=== PATIENT | male | born 1990 | race Caucasian/White ===

== ENCOUNTER 2017-07-12 15:52 | Emergency (ER) | payer BC, OTHER ==
[2017-07-12 16:12] VITALS: BP 125/84; PULSE 72; TEMP 98.7; BMI 28.5
[2017-07-12] MEDS ORDERED: IBUPROFEN 400 MG TABLET (FP) PO ONE (16:36)
--- NOTE | 2017-07-12 16:38 | PDOC ---
History of Present Illness - General Chief Complaint: Injury Stated Complaint: LEFT ANKLE PAIN Time Seen by Provider: 07/12/17 16:22 Past History - Past Medical History Allergies/Adverse Reactions: Allergies Allergy/AdvReac Type Severity Reaction Status Date / Time No Known Allergies Allergy Verified 07/12/17 15:58 Home Medications: Ambulatory Orders NK [No Known Home Medication] 07/12/17 Anemia: No COPD: No - Surgical History Abdominal Surgery: No - Immunization History Td Vaccination: Yes Immunization Up to Date: No - Suicide/Smoking/Psychosocial Hx Smoking Status: No Smoking History: Never smoked Have you smoked in the past 12 months: No Number of Cigarettes Smoked Daily: 0 Information on smoking cessation initiated: No Hx Alcohol Use: No Drug/Substance Use Hx: No Substance Use Type: None *Physical Exam - Vital Signs Last Vital Signs Temp Pulse Resp BP Pulse Ox 98.7 F 72 20 125/84 99 07/12/17 15:58 07/12/17 15:58 07/12/17 15:58 07/12/17 15:58 07/12/17 15:58 Medical Decision Making - Medical Decision Making 07/12/17 17:18 30y M no pmhx presents with L ankle pain. The patint states he was playing basketball when he rolled his L ankle (eversion), dnies any numbness/tingling/ weakness. the patients exam: no focal bony tenderness to lateral/medial mallelos mild pain just distal to his latearal mallelus no 5th metatarsal tenderness no knee tenderness prrox fibular/tibia tenderness suspect fracture vs sprain motrin/xray 07/12/17 18:19 no fracture noted on hs ankle/foto xray will dc with tone wrap nsaid/supportive care at home pmd fu rturn precautios were discussed I discussed the physical exam findings, ancillary test results and final diagnoses with the patient. I answered all of the patient's questions. The patient was satisfied with the care received and felt comfortable with the discharge plan and treatment plan. The patient will call their primary care physician within 24 hours to arrange follow-up and will return to the Emergency Department with any new, persistent or worsening symptoms. *DC/Admit/Observation/Transfer Diagnosis at time of Disposition: Left ankle sprain Qualifiers: Encounter type: initial encounter Involved ligament of ankle: unspecified ligament Qualified Code(s): S93.402A - Sprain of unspecified ligament of left ankle, initial encounter - Discharge Dispostion Disposition: HOME Condition at time of disposition: Improved Admit: No - Referrals Referrals: Ye Marino MD [Staff Physician] - - Patient Instructions Printed Discharge Instructions: DI for Ankle Sprain Additional Instructions: Return to the emergency department immediately with ANY new, persistent or worsening symptoms. Keep your extremity elevated. Apply ice to reduce swelling. Take ibuprofen for pain. Refrained from physical activity until reassessed. You MUST call and follow up with your doctor tomorrow for further evaluation of your symptoms. Results were discussed with you. Please make sure your doctor reviews the results of your emergency evaluation. If you had any xrays during your visit, it was read preliminarily by myself, a Radiologist will review it and if there are any additional findings we will call you. Print Language: ITALIAN - Post Discharge Activity
[2017-07-12] MEDS ORDERED: IBUPROFEN 600 MG TABLET (FP) PO ONE (16:58)
== END 2017-07-12 18:23 | disposition home or self-care (01) ==
LOC: FER 15:52
DX: S93.402A Sprain of unspecified ligament of left ankle, initial encounter (principal); X58.XXXA Exposure to other specified factors, initial encounter; Y93.89 Activity, other specified; Y92.9 Unspecified place or not applicable
CPT/HCPCS: 73610-TC-LT-FY; 73630-TC-LT; 99282-25

== ENCOUNTER 2018-07-24 09:12 | Emergency (ER) | payer BC ==
[2018-07-24 09:27] VITALS: BP 144/100; PULSE 75; TEMP 98.5; BMI 29.9
[2018-07-24] MEDS ORDERED: SODIUM CHLORIDE 1,000 ML IV STA (09:30)
[2018-07-24] MEDS ORDERED: ONDANSETRON 4 MG/2 ML VIAL IVPUSH ONE (09:31)
--- NOTE | 2018-07-24 09:33 | PDOC ---
History of Present Illness - General Chief Complaint: Pain Stated Complaint: RIGHT RIB CAGE PAIN Time Seen by Provider: 07/24/18 09:15 History Source: Patient (Patient walked in complaning of right side (under the rib cage ) pain with some radiation to the back intermitently, worse this early a.m. Patient works nightshifts in a hotel, pain triggered by fatty food. Patient lost 170 lb over few months few years ago.) Exam Limitations: No Limitations - History of Present Illness Timing/Duration: 4-6 hours, other (Patient had similar pains througout yers, normal CT allegedly.) Severity: moderate Associated Symptoms: reports: nausea/vomiting Past History - Travel Traveled outside of the country in the last 30 days: No Close contact w/someone who was outside of country & ill: No - Past Medical History Allergies/Adverse Reactions: Allergies Allergy/AdvReac Type Severity Reaction Status Date / Time No Known Allergies Allergy Verified 07/24/18 09:14 Home Medications: Ambulatory Orders NK [No Known Home Medication] 07/12/17 Anemia: No COPD: No Other medical history: Morbid obesity lost 170 lb few years ago - Surgical History Abdominal Surgery: No - Immunization History Td Vaccination: Yes Immunization Up to Date: No - Suicide/Smoking/Psychosocial Hx Smoking Status: No Smoking History: Never smoked Have you smoked in the past 12 months: No Number of Cigarettes Smoked Daily: 0 Hx Alcohol Use: No Drug/Substance Use Hx: No Substance Use Type: None Review of Systems - Review of Systems Able to Perform ROS?: Yes Is the patient limited Salvadorean proficient: Yes Constitutional: Yes: Symptoms Reported, Malaise HEENTM: No: Symptoms Reported, See HPI, Eye Pain, Blurred Vision, Tearing, Recent change in vision, Double Vision, Cataracts, Ear Pain, Ocular Prothesis, Ear Discharge, Nose Pain, Nose Congestion, Tinnitus, Nose Bleeding, Hearing Loss , Throat Pain, Throat Swelling, Mouth Pain, Dental Problems, Difficulty Swallowing, Mouth Swelling, Other Respiratory: No: Symptoms reported, See HPI, Cough, Orthopnea, Shortness of Breath, SOB with Exertion, SOB at Rest, Stridor, Wheezing, Productive cough, Hemoptysis, Other Cardiac (ROS): No: Symptoms Reported, See HPI, Chest Pain, Edema, Irregular Heart Rate, Lightheadedness, Palpitations, Syncope, Chest Tightness, Other ABD/GI: Yes: Symptoms Reported, See HPI, Nausea : No: Symptoms Reported, See HPI, Burning, Dysuria, Discharge, Frequency, Flank Pain, Hematuria, Incontinence, Pain, Urgency, Testicular Mass, Testicular Swelling, Lesions, Testicular Pain, Other Musculoskeletal: No: Symptoms Reported, See HPI, Back Pain, Gout, Joint Pain, Joint Swelling, Muscle Pain, Muscle Weakness, Neck Pain, Joint Stiffness, Other Integumentary: No: Symptoms Reported, See HPI, Bruising, Change in Color, Change in Hair/Nails, Dryness, Erythema, Flushing, Lesions, Lumps, Pallor, Pruritus, Rash, Sweating, Other Neurological: No: Symptoms reported, See HPI, Headache, Numbness, Paresthesia, Pre-Existing Deficit, Seizure, Tingling, Tremors, Weakness, Unsteady Gait, Ataxia, Dizziness, Other All Other Systems: Reviewed and Negative *Physical Exam - Physical Exam General Appearance: Yes: Nourished, Appropriately Dressed, Mild Distress, Moderate Distress HEENT: positive: NYLA Neck: positive: Trachea midline, Supple Respiratory/Chest: positive: Lungs Clear Cardiovascular: positive: Regular Rate, S1, S2 Gastrointestinal/Abdominal: positive: Normal Bowel Sounds, Tender (RUQ pain at deep palpation without rebound) Lymphatic: negative: Adenopathy Musculoskeletal: positive: Normal Inspection. negative: CVA Tenderness Extremity: positive: Normal Capillary Refill, Normal Inspection Integumentary: positive: Normal Color, Dry, Warm Neurologic: positive: Fully Oriented, Alert, Normal Mood/Affect ED Treatment Course - LABORATORY CBC & Chemistry Diagram: 07/24/18 09:50 07/24/18 09:50 Medical Decision Making - Medical Decision Making Patient seen immediately from arrival, Wyatt shipley Impression : RUQ pain , Gallbladder pathology to be worked out 07/24/18 09:40 07/24/18 10:15 Patient receiving iv fluids and Zofran with improvement of symptom Required more pain control iv Toradol given Awaiting for lab results and US of abdomen 07/24/18 10:[address] Pierre at shift change at 11 am *DC/Admit/Observation/Transfer Diagnosis at time of Disposition: Abdominal pain Qualifiers: Abdominal location: right upper quadrant Qualified Code(s): R10.11 - Right upper quadrant pain Cholelithiasis Qualifiers: Cholelithiasis location: gallbladder Cholecystitis presence: without cholecystitis Biliary obstruction: without biliary obstruction Qualified Code(s) : K80.20 - Calculus of gallbladder without cholecystitis without obstruction - Discharge Dispostion Disposition: HOME Condition at time of disposition: Stable Decision to Admit order: No - Referrals Referrals: Gerda Mobley MD [Staff Physician] - Reyna Harris MD [Staff Physician] - - Patient Instructions Printed Discharge Instructions: DI for Abdominal Pain-Adult Additional Instructions: Call the doctors for appontments today Return anytime if pain continues - Post Discharge Activity Forms/Work/School Notes: Back to Work
[2018-07-24] MEDS ORDERED: ONDANSETRON 4 MG/2 ML VIAL ONE (09:39)
[2018-07-24] MEDS ORDERED: KETOROLAC TROMETHAMINE 30 MG/1 ML VIAL ONE ×2 (10:13→11:39)
[2018-07-24] MEDS ORDERED: KETOROLAC TROMETHAMINE 30 MG/1 ML VIAL IVPUSH ONE ×2 (10:14→11:36)
[2018-07-24 10:18] LABS: BASO % 0.3 % (0-2.0); EOS % 2.4 % (0-4.5); HEMATOCRIT 47.5 % (35.4-49); HEMOGLOBIN 15.6 GM/dl (11.7-16.9); LYMPH % 28.8 % (8-40); MCH 28.7 pg (25.7-33.7); MCHC 32.8 g/dl (32.0-35.9); MEAN CELL VOLUME 87.5 fl (80-96); MEAN PLT VOLUME 10.3 fl (7.5-11.1); MONO % 5.7 % (3.8-10.2); NEUT % 62.8 % (42.8-82.8); PLATELET COUNT 221 K/MM3 (134-434); RBC 5.43 M/mm3 (4.00-5.60); RDW 12.3 % (11.9-15.9); WHITE BLOOD COUNT 6.4 K/mm3 (4.0-10.8)
[2018-07-24 10:29] LABS: ANION GAP 7 MMOL/L (8-16); BLOOD UREA NITROGEN 20 mg/dl (7-18); CALCIUM 9.4 mg/dl (8.5-10); CHLORIDE 102 mmol/L (98-107); CO2 28 mmol/L (21-32); GLUCOSE,RANDOM 98 mg/dl (74-106); POTASSIUM 4.1 mmol/L (3.5-5.1); SODIUM 137 mmol/L (136-145); TOT PROT 7.8 g/dl (6.4-8.2)
[2018-07-24 10:30] LABS: ALBUMIN 4.4 g/dl (3.4-5.0); ALK PHOS 73 U/L (45-117); BILIRUBIN,TOTAL 0.8 mg/dl (0.2-1); SGOT/AST 24 U/L (15-37); SGPT/ALT 16 U/L (13-61)
[2018-07-24 10:45] LABS: AMYLASE 99 U/L (25-115)
[2018-07-24 11:07] LABS: URINE APPEARANCE CLEAR; URINE BILIRUBIN NEGATIVE (NEGATIVE); URINE COLOR YELLOW; URINE GLUCOSE (UA) NEGATIVE (NEGATIVE); URINE KETONE NEGATIVE (NEGATIVE)
[2018-07-24 11:08] LABS: PH,URINE 5.5 (4.5-8); URINE LEUK ESTERASE NEGATIVE (NEGATIVE); URINE NITRITE NEGATIVE (NEGATIVE); URINE PROTEIN NEGATIVE (NEGATIVE); URINE UROBILINOGEN 0.2 (0.2-1.0)
== END 2018-07-24 12:10 | disposition home or self-care (01) ==
LOC: FER 09:12
PROC: 3E0333Z Introduction of Anti-inflammatory into Peripheral Vein, Percutaneous Approach (ICD-10-PCS; principal; 2018-07-24)
PROC: 3E033GC Introduction of Other Therapeutic Substance into Peripheral Vein, Percutaneous Approach (ICD-10-PCS; 2018-07-24)
PROC: 3E0337Z Introduction of Electrolytic and Water Balance Substance into Peripheral Vein, Percutaneous Approach (ICD-10-PCS; 2018-07-24)
DX: R10.11 Right upper quadrant pain (principal)
CPT/HCPCS: 36415; 76705-TC; 80053; 81003; 82150; 83690; 85025; 99283-25; J7030

== ENCOUNTER 2019-03-25 07:45 | Emergency (ER) | payer BC ==
[2019-03-25] MEDS ORDERED: PANTOPRAZOLE SODIUM 40 MG in SODIUM CHLORIDE 100 ML IVPB ONE (07:48)
[2019-03-25] MEDS ORDERED: SODIUM CHLORIDE 1,000 ML IV STA (07:48)
[2019-03-25] MEDS ORDERED: ACETAMINOPHEN 1000 MG/100 ML VIAL (NON FORMULARY) IVPB ONE (07:48)
[2019-03-25 07:51] VITALS: TEMP 98.6; BMI 29.9
[2019-03-25] MEDS ORDERED: PANTOPRAZOLE SODIUM 40 MG VIAL ONE (07:56)
[2019-03-25] MEDS ORDERED: ACETAMINOPHEN INJECTION 100 ML IVPB ONE (07:56)
--- NOTE | 2019-03-25 07:57 | PDOC ---
History of Present Illness - General Chief Complaint: Pain, Acute Stated Complaint: ABD PAIN Time Seen by Provider: 03/25/19 07:46 - History of Present Illness Initial Comments: 03/25/19 07:53 28 M with h/o gallstones presenting to ED with RUQ pain starting this morning. Pt states he is having a "gallbladder attack". Pt was in this ED July of this year for similar episode, had US that showed gallstones and ?cholecystitis. Pt was instructed to f/u with surgery that day. However, pt states he did some reading online and found that he could treat his gallstones without surgery, so he did not follow up with a specialist. He reports that he passed multiple stones using a "cleanse". He has had occasional flare-ups of pain over the past 9 months but states that he can usually manage them with heating pads. Today, however, the pain has been persistent and severe. Denies any F/C. Denies N/V/D. Denies dysuria. Past History - Past Medical History Allergies/Adverse Reactions: Allergies Allergy/AdvReac Type Severity Reaction Status Date / Time No Known Allergies Allergy Verified 03/25/19 07:45 Home Medications: Ambulatory Orders NK [No Known Home Medication] 07/12/17 Anemia: No COPD: No - Surgical History Abdominal Surgery: No - Immunization History Td Vaccination: Yes Immunization Up to Date: No - Psycho Social/Smoking Cessation Hx Smoking Status: No Smoking History: Never smoked Have you smoked in the past 12 months: No Number of Cigarettes Smoked Daily: 0 Hx Alcohol Use: Yes (OCASIONAL) Drug/Substance Use Hx: No Substance Use Type: None Review of Systems - Review of Systems Comments:: 03/25/19 07:56 "GENERAL/CONSTITUTIONAL: No fever or chills. No weakness. HEAD, EYES, EARS, NOSE AND THROAT: No change in vision. No ear pain or discharge. No sore throat. CARDIOVASCULAR: No chest pain, no shortness of breath, no loss of consciousness RESPIRATORY: No cough, wheezing, or hemoptysis. GASTROINTESTINAL: + abdominal pain, No nausea, vomiting, diarrhea or constipation. GENITOURINARY: No dysuria, frequency, or change in urination. MUSCULOSKELETAL: No joint or muscle swelling or pain. No neck or back pain. SKIN: No rash NEUROLOGIC: No vertigo, no change in strength/sensation. ENDOCRINE: No increased thirst. No abnormal weight change. HEMATOLOGIC/LYMPHATIC: No anemia, easy bleeding, or history of blood clots. ALLERGIC/IMMUNOLOGIC: No hives or skin allergy. *Physical Exam - Vital Signs Last Vital Signs Temp Pulse Resp BP Pulse Ox 98.6 F 60 18 174/72 H 100 03/25/19 07:45 03/25/19 07:45 03/25/19 07:45 03/25/19 07:45 03/25/19 07:45 - Physical Exam Comments: 03/25/19 07:56 "GENERAL: Awake, alert, and fully oriented, in no acute distress. HEAD: No signs of trauma EYES: PERRLA, EOMI, sclera anicteric, conjunctiva clear ENT: Auricles normal inspection, hearing grossly normal, nares patent, oropharynx clear without exudates. Moist mucosa NECK: Nontender, no stepoffs, Normal ROM, supple, no lymphadenopathy, JVD, or masses LUNGS: Breath sounds equal, clear to auscultation bilaterally. No wheezes, and no crackles HEART: Regular rate and rhythm, normal S1 and S2, no murmurs, rubs or gallops ABDOMEN: + RUQ TTP, normoactive bowel sounds. No guarding, no rebound. No masses EXTREMITIES: Normal range of motion, no edema. No clubbing or cyanosis. No cords, erythema, or tenderness NEUROLOGICAL: Cranial nerves II through XII intact. 5/5 strength and sensation in all extremities, Normal speech, normal gait, normal cerebellar function SKIN: Warm, Dry, normal turgor, no rashes or lesions noted. ED Treatment Course - LABORATORY CBC & Chemistry Diagram: 03/25/19 08:00 03/25/19 08:00 Medical Decision Making - Medical Decision Making 03/25/19 07:56 28 M with RUQ pain. Known gallstones on prior imaging. - Labs - RUQ sono - IVF, pain control 03/25/19 10:07 Labs wnl US shows gallstone with distended gallbladder. no cholecystitis. Pt reassessed - pain now well controlled, pt tolerating PO. Will DC with surgery f/u Pt is well appearing, with normal vitals. Clinically stable for DC at this time. I discussed the physical exam findings, ancillary test results and final diagnoses with the patients family. I answered all of their questions. The family was satisfied with the care received and felt comfortable with the discharge plan and treatment plan. They agree to follow up with the primary care physician within 24-72 hours. Discharge - Discharge Information Problems reviewed: Yes Clinical Impression/Diagnosis: Abdominal pain, Gallstone, Biliary colic Condition: Stable Disposition: HOME - Additional Discharge Information Prescription Drug Monitoring Program (I-STOP) results: I-STOP reviewed and no issues identified - Follow up/Referral Referrals: Dominic Arguelles MD [Staff Physician] - Tarun Banda MD [Staff Physician] - - Patient Discharge Instructions Patient Printed Discharge Instructions: DI for Gallstones, DI for Prescription Opioid Use Additional Instructions: Your ultrasound showed a gallstone in your gallbladder, which is likely the cause of your pain. Follow up with a surgeon to discuss treatment options. Call the number provided to make an appointment within 48 hours. If you experience worsening abdominal pain, vomiting, fevers, or any other concerning symptoms, return to the ER immediately. - Post Discharge Activity
[2019-03-25] MEDS ORDERED: KETOROLAC TROMETHAMINE 30 MG/1 ML VIAL IVPUSH ONE (08:14)
[2019-03-25] MEDS ORDERED: KETOROLAC TROMETHAMINE 30 MG/1 ML VIAL ONE (08:15)
[2019-03-25 08:26] LABS: BASO % 0.4 % (0-2.0); EOS % 2.3 % (0-4.5); HEMATOCRIT 47.5 % (35.4-49); HEMOGLOBIN 16.2 GM/dl (11.7-16.9); LYMPH % 28.8 % (8-40); MCH 29.8 pg (25.7-33.7); MEAN CELL VOLUME 87.6 fl (80-96); MEAN PLT VOLUME 9.7 fl (7.5-11.1); MONO % 4.9 % (3.8-10.2); NEUT % 63.6 % (42.8-82.8); PLATELET COUNT 211 K/MM3 (134-434); RBC 5.43 M/mm3 (4.00-5.60); RDW 11.6 % (11.9-15.9); WHITE BLOOD COUNT 5.9 K/mm3 (4.0-10.8)
[2019-03-25 08:31] LABS: ALBUMIN 4.5 g/dl (3.4-5.0); BILIRUBIN,TOTAL 0.5 mg/dl (0.2-1); CALCIUM 9.3 mg/dl (8.5-10); POTASSIUM 3.6 mmol/L (3.5-5.1); TOT PROT 7.8 g/dl (6.4-8.2)
[2019-03-25 08:33] LABS: INR 1.19 (0.82-1.09); PROTHROMBIN TIME (PATIENT) 13.3 SEC (10.2-13.0)
[2019-03-25] MEDS ORDERED: morphine CARPU-JECT 4 MG/1 ML DISP.SYRIN IVPUSH ONE (08:36)
[2019-03-25] MEDS ORDERED: morphine SULFATE 4 MG/ML VIAL ONE (08:42)
[2019-03-25 09:44] VITALS: BP 122/86; PULSE 72
== END 2019-03-25 10:19 | disposition home or self-care (01) ==
LOC: FER 07:45
PROC: 3E033NZ Introduction of Analgesics, Hypnotics, Sedatives into Peripheral Vein, Percutaneous Approach (ICD-10-PCS; principal; 2019-03-25)
PROC: 3E0333Z Introduction of Anti-inflammatory into Peripheral Vein, Percutaneous Approach (ICD-10-PCS; 2019-03-25)
PROC: 3E033GC Introduction of Other Therapeutic Substance into Peripheral Vein, Percutaneous Approach (ICD-10-PCS; 2019-03-25)
DX: R10.11 Right upper quadrant pain (principal); N20.0 Calculus of kidney; K80.20 Calculus of gallbladder without cholecystitis without obstruction
CPT/HCPCS: 36415; 76705-TC; 80053; 83690; 85025; 85610; 85730; 86850; 86900; 86901; 99283-25; J0131; J7030

== ENCOUNTER 2019-04-11 18:55 | Emergency (ER) | payer BC ==
[2019-04-11 19:11] VITALS: BP 123/79; PULSE 68; TEMP 98.7; BMI 28.5
--- NOTE | 2019-04-11 22:25 | PDOC ---
Documentation entered by Kacei Gabriel SCRIBE, acting as scribe for Tamara Barraza MD. Tamara Barraza MD: This documentation has been prepared by the nimeshibeHarvey Maria, SCRIBE, under my direction and personally reviewed by me in its entirety. I confirm that the documentation accurately reflects all work, treatment, procedures, and medical decision making performed by me. History of Present Illness - General Chief Complaint: Injury Stated Complaint: RT SHOULDER AREA INJURY Time Seen by Provider: 04/11/19 19:07 - History of Present Illness Initial Comments: 04/11/19 21:05 Patient is a 28 year old male with no significant past medical history who presents to the emergency department with right shoulder pain since yesterday. Patient states he was playing basketball when he had shoulder to shoulder contact with another player. Patient states that he felt sore yesterday and when he woke up this morning he was unable to move it and describes it as immediate sharp pain. Patient states he took Tylenol for the pain with no relief. Patient denies any trauma. He denies any recent fevers, chills, headache or dizziness. He denies any recent nausea, vomit, diarrhea or constipation. He denies any recent chest pain or shortness of breath. He denies any recent dysuria, frequency, urgency or hematuria. Past History - Past Medical History Allergies/Adverse Reactions: Allergies Allergy/AdvReac Type Severity Reaction Status Date / Time No Known Allergies Allergy Verified 04/11/19 18:59 Home Medications: Ambulatory Orders Diclofenac Sodium 75 mg PO BID PRN #20 tablet. 04/11/19 Anemia: No COPD: No GI Disorders: Yes (gallstones) - Surgical History Abdominal Surgery: No - Immunization History Td Vaccination: Yes Immunization Up to Date: No - Psycho Social/Smoking Cessation Hx Smoking Status: No Smoking History: Never smoked Have you smoked in the past 12 months: No Number of Cigarettes Smoked Daily: 0 Information on smoking cessation initiated: No Hx Alcohol Use: No Drug/Substance Use Hx: No Substance Use Type: None Review of Systems - Review of Systems Able to Perform ROS?: Yes Comments:: 04/11/19 21:05 GENERAL/CONSTITUTIONAL: No fever or chills. No weakness. HEAD, EYES, EARS, NOSE AND THROAT: No change in vision. No ear pain or discharge. No sore throat. CARDIOVASCULAR: No chest pain or shortness of breath. RESPIRATORY: No cough, wheezing, or hemoptysis. GASTROINTESTINAL: No nausea, vomiting, diarrhea or constipation. GENITOURINARY: No dysuria, frequency, or change in urination. MUSCULOSKELETAL:+ right shoulder pain. No neck or back pain. SKIN: No rash NEUROLOGIC: No headache, vertigo, loss of consciousness, or change in strength/ sensation. ENDOCRINE: No increased thirst. No abnormal weight change. HEMATOLOGIC/LYMPHATIC: No anemia, easy bleeding, or history of blood clots. ALLERGIC/IMMUNOLOGIC: No hives or skin allergy. *Physical Exam - Vital Signs Last Vital Signs Temp Pulse Resp BP Pulse Ox 98.7 F 68 18 123/79 100 04/11/19 18:55 04/11/19 18:55 04/11/19 18:55 04/11/19 18:55 04/11/19 18:55 - Physical Exam 04/11/19 21:05 GENERAL: Awake, alert, and fully oriented, in no acute distress HEAD: No signs of trauma EYES: PERRLA, EOMI, sclera anicteric, conjunctiva clear EXTREMITIES: +mild tenderness of the right acromioclavicular joint with reproduction of pain on abduction of arm greater than 60 degrees. no edema/ ecchymosis. No clubbing or cyanosis. No cords no erythema.. Extremity exam otherwise normal NEUROLOGICAL: Cranial nerves II through XII grossly intact. Normal speech, normal gait SKIN: Warm, Dry, normal turgor, no rashes or lesions noted. ED Treatment Course - RADIOLOGY Radiology Studies Ordered: Category Date Time Status SHOULDER-RIGHT [RAD] Stat Radiology 04/11/19 20:10 Completed Medical Decision Making - Medical Decision Making as noted above, this 28-year-old man presents with right shoulder injury, sustained yesterday while patient was playing basketball. He described impact of his right shoulder against another player's shoulder. He did not have significant pain immediately after the injury. This morning, he noted significant pain in the area of the AC joint with movement. No previous history of trauma to this shoulder. No other trauma sustained yesterday. Exam as noted. Right shoulder x-ray performed and interpreted by Dr. Cano of the radiology staff: No evidence of fracture or dislocation. Clinical presentation most consistent with right shoulder sprain. Patient should continue ice to area of injury for the next 24 hours and use sling when up and around for the next 3 days. 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 He has been seen by rheumatology or orthopedics in the past and a referral information will be given to him. Meanwhile, prescription required diclofenac 75 mg twice a day to be taken with food has been sent to his pharmacy. Discharge - Discharge Information Problems reviewed: Yes Clinical Impression/Diagnosis: Sprain of right shoulder Qualifiers: Encounter type: initial encounter Shoulder sprain type: other part of shoulder region Qualified Code(s): S43.491A - Other sprain of right shoulder joint, initial encounter Condition: Stable Disposition: HOME - Additional Discharge Information Prescriptions: Diclofenac Sodium 75 mg PO BID PRN #20 tablet.dr GILLETTE Reason: Pain - Follow up/Referral Referrals: Gael Escobar MD [Primary Care Provider] - Gokul Ellis MD [Staff Physician] - 2 Days - Patient Discharge Instructions Patient Printed Discharge Instructions: Shoulder Sprain Additional Instructions: Ice to right shoulder for the next 2 days Right arm sling during the day for the next 3 days Diclofenac 75 mg twice a day as needed for pain Call (orthopedic group) on April 13 to arrange follow-up within 48 hours No work until seen by orthopedic group Return to ER if you have severe persistent pain - Post Discharge Activity Work/Back to School Note: Back to Work
== END 2019-04-11 21:07 | disposition home or self-care (01) ==
LOC: FER 18:55
DX: S43.491A Other sprain of right shoulder joint, initial encounter (principal); W51.XXXA Accidental striking against or bumped into by another person, initial encounter; Y93.67 Activity, basketball; Y92.89 Other specified places as the place of occurrence of the external cause; K80.80 Other cholelithiasis without obstruction
CPT/HCPCS: 73030-TC-RT-FY; 99283-25